=== PATIENT | female | born 1975 | race Caucasian/White ===

== ENCOUNTER 2020-05-14 04:11 | Emergency (ER) | payer OTHER ==
[~2020-05-14] VITALS: Ht 165.1 cm; Wt 77.0 kg
[2020-05-14] MEDS ORDERED: CLONIDINE 0.1MG TABLET PO ONE (05:00)
[2020-05-14 07:29] VITALS: BP 167/89
== END 2020-05-14 07:30 | disposition home or self-care (01) ==
LOC: ER 04:32
DX: M25.552 Pain in left hip (principal)
CPT/HCPCS: 73502; 81025; 99283